=== PATIENT | female | born 1970 | race Caucasian/White ===

== ENCOUNTER → 2019-09-26 09:35 | Outpatient (CLI) | payer OTHER, SELFPAY ==
--- NOTE | 2019-09-26 09:42 | US_ITS ---
PROCEDURE: US FNA THYROID CLINICAL INDICATION: LT THYROID NODULE COMPARISON: US Thyroid from 09/11/2019 TECHNIQUE: Pre biopsy ultrasound confirms dominant solid nodule in the lower pole on the left. Following obtaining informed consent, using aseptic technique and local anesthesia with buffered lidocaine, fine-needle aspiration was performed of the nodule of interest using sonographic guidance. 3 passes were made into the nodule with a [id number] needle. Specimen was given to cytology. FINDINGS: CYTOLOGY: Benign follicular nodule IMPRESSION: FNA of the solid nodule in the lower pole on the left shows a benign follicular nodule. The patient tolerated the procedure well without evidence of immediate complications and left the ultrasound suite in stable condition. Dictated b Magnus Ochoa MD 10/10/2019 17:51 Magnus Ochoa MD in [place] 10/10/2019 17:51
== END ==
PROVIDERS: PCP Family Medicine; Visit Provider Otolaryngology
DX: D34 Benign neoplasm of thyroid gland (principal)
CPT/HCPCS: 10005; 76942